=== PATIENT | female | born 1990 | race Caucasian/White ===

== ENCOUNTER → 2018-05-04 14:30 | Outpatient (CLI) | payer BC, SELFPAY ==
[2018-05-04 16:14] LABS: Progesterone Level 2.14 ng/mL (See Comment)
[2018-05-08 13:38] LABS: HPV Reflexed? NOT INDICATED
== END ==
LOC: LABSPEC 14:31
PROVIDERS: Visit Provider Obstetrics & Gynecology
DX: Z12.4 Encounter for screening for malignant neoplasm of cervix (principal)
CPT/HCPCS: 36415; 84144; 88175; G0145

== ENCOUNTER 2024-10-20 16:40 | Emergency (ER) | payer OTHER, SELFPAY ==
[2024-10-20 16:41] VITALS: BP 119/76; PULSE 77; RESP 18; TEMP 36.4; O2SAT 99
--- NOTE | 2024-10-20 16:50 | ED.RN ---
spoke with Aliza, general store manager @ [facility], about drug testing. 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
--- NOTE | 2024-10-20 18:18 | ED.RN ---
[facility] [place], available for drug screen.
[2024-10-20] MEDS: Diphth,Pertuss(Acell),Tet Vac 0.5 ML Vial IM (20:08)
[2024-10-20] MEDS: Lidocaine 1% (20 ml mdv) 20 ML Vial INFILT (20:08)
[2024-10-20 20:16] VITALS: PULSE 77; RESP 18
[2024-10-20 20:41] VITALS: PULSE 78; RESP 18; O2SAT 100
--- NOTE | 2024-10-20 21:47 | EX.ED.UPPERE ---
HPI History of Present Illness Chief Complaint: Laceration Informant: patient Narrative Narrative: Patient is a 34-year-old female who is right-hand dominant presenting with right second and third finger injuries. 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 She started bleeding and had pain. Came in for further evaluation. Is not sure the last tetanus was. Is declined anything for pain at this time. No other complaints or concerns. No report of any associated numbness or tingling. Tetanus Immunization: Unknown [facility] Home Medications ?Medication ?Instructions ?Recorded ?Last Taken ?Type NK 10/20/24 Unknown History Allergy/AdvReac Type Severity Reaction Status Date / Time No Known Allergies Allergy Verified 10/20/24 16:41 Social History Smoking Status: Never smoker ROS ROS ED Constitutional Constitutional ED: Denies chills or fever(s) Musculoskeletal Musculoskeletal: Reports other Details: right finger pain Integumentary Reports other Details: wounds to right 2nd and 3rd fingers Neurologic Neurologic: Denies paresthesias or weakness Hematologic/Lymphatic Hematologic/Lymphatic: Denies easy bleeding or easy bruising EXAM Physical Exam Const Vital Signs: 10/20/24 16:41 10/20/24 20:16 10/20/24 20:41 Temperature 97.6 F L Temperature Source Temporal Pulse Rate 77 77 78 Respiratory Rate 18 18 18 Respiratory Pattern Normal Blood Pressure 119/76 Blood Pressure Mean 90 Pulse Ox 99 100 Oxygen Delivery Method Room Air Room Air Positive well nourished and well developed General Appearance ED: well developed and NAD HEENT normocephalic and atraumatic Chest Wall inspection of chest normal Resp normal respiratory effort Cardio regular rate and regular rhythm Cardio Narrative: 2+ radial pulses Extremity Extremity Narrative: Patient is avulsion type laceration to the right second and third pads of the finger. No obvious deformity of the fingers. Normal flexion extension. No weakness appreciated. Neuro oriented x3, no focal motor deficits and no sensory deficits noted Sensorium / Orientation: alert Motor Exam: Negative for general weakness Skin Skin Narrative: On the right index finger there is a approximately 1 cm x 1 cm skin flap that is full-thickness on the pad of the finger extending from the distal phalanges to the middle phalanges. It is connected at on 2 sides. On the third finger there is a 3 cm x 2 cm skin flap connected at the base. It is full-thickness. It extends from the pad of the distal phalanx down to towards the middle phalanx. No other injuries appreciated. MDM MDM MDM Narrative Medical decision making narrative: Patient is evaluated for avulsion type laceration to her right second and third fingers. She is neurovascularly intact. No obvious tendon or ligament injury. Overall is well-appearing. Vital signs are normal. Is hemodynamically stable. Is on any blood thinners. Is declining pain medication emergency room. I do not think she requires x-ray imaging as I do not suspect bony injury at this time. Wound is soaked in Hibiclens solution to clean out. Laceration pair performed. Wound is irrigated. Tetanus is updated. Patient is given wound care instructions and outpatient follow-up with [employer]. Given return precautions. Instructed alternate ibuprofen and Tylenol as needed for pain. Do not think she requires empiric antibiotics at this time. Procedures Lacerations 2nd finger: Length: 1.97 in Depth: Skin Shape: Flap Prep: Chlorhexadine Laceration repair: Digital block and Skin sutures Irrigated (ml): 500 Number of Sutures/Franci: 4 Suture Information: Ethilon, Simple and 4-0 Comment: Loose approximation to tack down flat 3rd finger: Length: 1.18 in Depth: Skin Shape: Flap Prep: Chlorhexadine Laceration repair: Digital block and Skin sutures Irrigated (ml): 500 Number of Sutures/Franci: 2 Suture Information: Ethilon, Simple and 4-0 Comment: Loose approximation to tack down flap Discharge Plan Triage Chief Complaint: Laceration ED Provider: Shaista Nicolas Dx/Rx/DC Orders Clinical Impression: Laceration of finger of right hand, Avulsion of fingers Instructions: ED Laceration, Hand: All Closures, ED Skin Tear (Skin Avulsion) Prescriptions: No Action NK Stand Alone Forms: Work Status Form Primary Care Provider: Care Physician,No Primary Referrals: Corporate,Care [Group of Physicians] - 10-14 Days suture removal Care Physician,No Primary [Primary Care Provider] - Activity Restrictions/Additional Instructions: Sutures should be removed in 10 to 14 days. In the meantime keep the area clean, covered and slightly moist. Change the bandage once a day. Apply [id number] Vaseline or bacitracin ointment to the area in between bandage changes. Cleanse with nonperfumed antibiotic soap and water. Print Language: Scottish Disposition Disposition: Home, Self Care
== END 2024-10-20 22:10 | disposition home or self-care (01) ==
PROVIDERS: Emergency Provider Emergency Medicine; Visit Provider Emergency Medicine
DX: S61.210A Laceration without foreign body of right index finger without damage to nail, initial encounter (principal); S61.212A Laceration without foreign body of right middle finger without damage to nail, initial encounter; W26.8XXA Contact with other sharp object(s), not elsewhere classified, initial encounter; Y99.0 Civilian activity done for income or pay; Z23 Encounter for immunization
CPT/HCPCS: 12004; 90471; 90715; 99284